=== PATIENT | female | born 1980 | race Caucasian/White ===

== ENCOUNTER 2021-02-14 06:55 | Day surgery (SDC) | payer BC, SELFPAY ==
[~2021-02-14] VITALS: Ht 162.6 cm; Wt 117.5 kg
[2021-02-14 08:45] LABS: HCG,QUAL RESULT NEGATIVE (NEGATIVE)
[2021-02-14] MEDS ORDERED: PROPOFOL 200MG/ 20ML VIAL (DIPRIVAN) IV ONE (09:39)
[2021-02-14] MEDS ORDERED: NS IRRIG SOLN 1000 ML IR ONE (09:39)
[2021-02-14] MEDS ORDERED: METOCLOPRAMIDE HCL 10 MG/2 ML VIAL IVP ONE (09:39)
[2021-02-14] MEDS ORDERED: LIDOCAINE 1% 10 MG/ML, 20 ML MDV INJ ONE (09:39)
[2021-02-14] MEDS ORDERED: fentaNYL CITRATE/PF 100 MCG/2 ML AMP IVP ONE (09:39)
[2021-02-14] MEDS ORDERED: ROCURONIUM BROMIDE 10 MG/ML (ZEMURON) IV ONE (09:39)
[2021-02-14] MEDS ORDERED: NEOSTIGMINE METHYLSULFATE 1 MG/ML, 10 ML VIAL IVP ONE (09:39)
[2021-02-14] MEDS ORDERED: ONDANSETRON HCL 4 MG/2 ML VIAL IVP ONE (09:39)
[2021-02-14] MEDS ORDERED: GLYCOPYRROLATE 0.2 MG/ML VIAL IJ ONE (09:39)
[2021-02-14] MEDS ORDERED: SEVOFLURANE 15 MIN GAS INH ONE (09:39)
[2021-02-14] MEDS ORDERED: KETOROLAC TROMETHAMINE 30 MG VIAL IVP ONE (09:39)
[2021-02-14] MEDS ORDERED: LR 1,000 ML IV.SOLN IV ONE (09:39)
[2021-02-14] MEDS ORDERED: LR 1,000 ML IV SCH (09:45)
[2021-02-14] MEDS ORDERED: MEPERIDINE HCL/PF 25 MG/ML DISP.SYRIN IVP PRN (09:45)
[2021-02-14] MEDS ORDERED: OXYCODONE/ACETAMINOPHEN 5-325 TABLET PO PRN ×3 (09:45→10:45)
[2021-02-14] MEDS ORDERED: fentaNYL CITRATE/PF 100 MCG/2 ML AMP IVP PRN (09:45)
[2021-02-14] MEDS ORDERED: IBUPROFEN 800 MG TABLET PO PRN (10:45)
[2021-02-14] MEDS ORDERED: ONDANSETRON HCL 4 MG/2 ML VIAL IM PRN (10:45)
[2021-02-14] MEDS ORDERED: fentaNYL CITRATE/PF 100 MCG/2 ML AMP ONE (10:57)
[2021-02-14 11:20] VITALS: BP_SYST 112
[2021-02-14] MEDS ORDERED: OXYCODONE/ACETAMINOPHEN 5-325 TABLET ONE (11:48)
== END 2021-02-14 12:45 | disposition home or self-care (01) ==
LOC: SMU 06:55 → SDS 06:55
PROVIDERS: ATTEND Obstetrics & Gynecology
DX: N92.0 Excessive and frequent menstruation with regular cycle (principal); J45.909 Unspecified asthma, uncomplicated; K21.9 Gastro-esophageal reflux disease without esophagitis; F32.9 Major depressive disorder, single episode, unspecified; F41.9 Anxiety disorder, unspecified; G43.909 Migraine, unspecified, not intractable, without status migrainosus; E78.5 Hyperlipidemia, unspecified; Z79.899 Other long term (current) drug therapy
CPT/HCPCS: 58563; 84703; 88305; J1885; J2001; J2405; J2704; J2710; J2765; J3010; J3490; J7120; U0003